=== PATIENT | male | born 1970 | race Caucasian/White ===

== ENCOUNTER 2016-10-17 10:46 | Emergency (ER) | payer OTHER ==
--- NOTE | 2016-10-17 12:32 | ED CLINICAL REPORT ---
Clinical Report - Physicians/Mid Levels [facility] [address] [place] [address] 10/17/2016 10:47 Patient: LAZARO PEDRAZA Time Seen: 10:52 AM. Arrived- By private vehicle. Historian- patient. CPT: ER phys charges level 3 plus (#586117). 7.6-12.5 ch layer clsr-neck, hands (#[id number]). Report L&I (#[id number]). HISTORY OF PRESENT ILLNESS Chief Complaint: Injury to left forearm. The injury happened just prior to arrival. The patient sustained a laceration from a knife. Occurred at work. Patient is experiencing moderate pain. No other injury. REVIEW OF SYSTEMS The patient sustained a laceration. He has had weakness. No swelling, tingling, numbness or suspected foreign body. All systems otherwise negative, except as recorded above. PAST HISTORY See nurses notes. Tetanus immunization status is unknown. Problems: no known problems. Additional Surgeries: no known surgeries. Medications: None. Allergies: None. SOCIAL HISTORY Never smoker. Regular alcohol use; consumes beer daily. No drug use. ADDITIONAL NOTES The nursing notes have been reviewed. PHYSICAL EXAM Vital Signs: 10/17/2016 10:55 BP: 147/77. HR: 98. RR: 20. O2 saturation: 99%. Temp: 98.2 F. Pain level now: 1010. Appearance: Alert. Appears to be in pain. Patient in moderate distress. Head: Head atraumatic. Neck: Normal inspection. CVS: Normal heart rate and rhythm. Respiratory: No respiratory distress. Skin: Skin warm. Extremities: Left forearm: moderate tenderness, mild swelling and deep laceration located in the mid forearm. SEE LACERATION PROCEDURE NOTE. Neurovascular intact distally. (deep into the belly of the flexor carpi ulnaris.). Extremities otherwise negative. Neuro, Vascular and Tendons: Vascular status intact. Sensation intact. Motor intact. Constant weakness (due to muscle injury). No functional tendon deficit or tendon injury seen. Neuro: Oriented X 3. No motor deficit. No sensory deficit. PROGRESS AND PROCEDURES Laceration Repair: Location: left forearm. Length: 12 cm. Wound depth/shape- subcutaneous and linear and involving fascia and muscle. Wound is clean. Distal neuro/vascular/tendon status normal. Tendon examined. No tendon deficit or laceration. Local anesthesia provided using 2% lidocaine with epi. Prepped with Hibiclens. Wound explored, cleansed, irrigated and examined to the base in bloodless field extensively with normal saline. Closure of skin: interrupted 4-0 nylon (11 sutures). Closure of fascia and muscle: interrupted 4-0 (3 sutures). Subcutaneous closure: interrupted 4-0 Vicryl (10 sutures). Post-procedure: he is stable and there are no complications. Bleeding is controlled and neuro-vascular status is intact distal to the wound. Dressing applied. Tetanus immunization given. Estimated blood loss: 10 mL. Course of Care: Tdap Patient is stable. Symptoms better. Discussed case with health care provider (Silvia and there is no further intervention for muscle injury.). Patient/family counseled. Disposition: Discharged. Condition: stable and improved. CLINICAL IMPRESSION Single deep laceration to the left forearm.No foreign body present. INSTRUCTIONS Elevate affected areas above chest level today, for one days until better. Wear fiberglass splint for four weeks until released. Protect wound and keep wound area clean. Change dressing twice daily. Keep wounds dry. You may wash wounds briefly, then dry. Apply neosporin twice daily. Sutures should be removed in fourteen days. Limit use of your hand. Do not work with left hand for four weeks until released. Return to work in four days (No using the left hand. Wear splint.). Do not work for three days. Warnings: TETANUS: You were given a tetanus shot during your visit. Make a note for future reference. GENERAL WARNINGS: Return or contact your physician immediately if your condition worsens or changes unexpectedly, if not improving as expected, or if other problems arise. Prescription Medications: Oxycodone/APAP 5 mg/325 mg: take 1-2 tablets orally every 4 hours as needed for pain. Dispense twenty (20). No refill. Follow-up: Follow up with your doctor in one week. Call for an appointment. Understanding of the discharge instructions verbalized by patient and family. [facility] with: [facility], , [address], , [place], [id number] Follow up in one week. Call for an appointment. Reason for referral: Deep laceration (Electronically signed by Luis Daniel Mc MD 10/17/2016 23:17)
--- NOTE | 2016-10-17 12:32 | ED CLINICAL REPORT ---
Clinical Report - Physicians/Mid Levels [facility] [address] [place] [address] 10/17/2016 10:47 Patient: LAZARO PEDRAZA Time Seen: 10:52 AM. Arrived- By private vehicle. Historian- patient. CPT: ER phys charges level 3 plus (#[id number]). 7.6-12.5 ch layer clsr-neck, hands (#[id number]). Report L&I (#[id number]). HISTORY OF PRESENT ILLNESS Chief Complaint: Injury to left forearm. The injury happened just prior to arrival. The patient sustained a laceration from a knife. Occurred at work. Patient is experiencing moderate pain. No other injury. REVIEW OF SYSTEMS The patient sustained a laceration. He has had weakness. No swelling, tingling, numbness or suspected foreign body. All systems otherwise negative, except as recorded above. PAST HISTORY See nurses notes. Tetanus immunization status is unknown. Problems: no known problems. Additional Surgeries: no known surgeries. Medications: None. Allergies: None. SOCIAL HISTORY Never smoker. Regular alcohol use; consumes beer daily. No drug use. ADDITIONAL NOTES The nursing notes have been reviewed. PHYSICAL EXAM Vital Signs: 10/17/2016 10:55 BP: 147/77. HR: 98. RR: 20. O2 saturation: 99%. Temp: 98.2 F. Pain level now: 1010. Appearance: Alert. Appears to be in pain. Patient in moderate distress. Head: Head atraumatic. Neck: Normal inspection. CVS: Normal heart rate and rhythm. Respiratory: No respiratory distress. Skin: Skin warm. Extremities: Left forearm: moderate tenderness, mild swelling and deep laceration located in the mid forearm. SEE LACERATION PROCEDURE NOTE. Neurovascular intact distally. (deep into the belly of the flexor carpi ulnaris.). Extremities otherwise negative. Neuro, Vascular and Tendons: Vascular status intact. Sensation intact. Motor intact. Constant weakness (due to muscle injury). No functional tendon deficit or tendon injury seen. Neuro: Oriented X 3. No motor deficit. No sensory deficit. PROGRESS AND PROCEDURES Laceration Repair: Location: left forearm. Length: 12 cm. Wound depth/shape- subcutaneous and linear and involving fascia and muscle. Wound is clean. Distal neuro/vascular/tendon status normal. Tendon examined. No tendon deficit or laceration. Local anesthesia provided using 2% lidocaine with epi. Prepped with Hibiclens. Wound explored, cleansed, irrigated and examined to the base in bloodless field extensively with normal saline. Closure of skin: interrupted 4-0 nylon (11 sutures). Closure of fascia and muscle: interrupted 4-0 (3 sutures). Subcutaneous closure: interrupted 4-0 Vicryl (10 sutures). Post-procedure: he is stable and there are no complications. Bleeding is controlled and neuro-vascular status is intact distal to the wound. Dressing applied. Tetanus immunization given. Estimated blood loss: 10 mL. Course of Care: Tdap Patient is stable. Symptoms better. Discussed case with health care provider (Silvia and there is no further intervention for muscle injury.). Patient/family counseled. Disposition: Discharged. Condition: stable and improved. CLINICAL IMPRESSION Single deep laceration to the left forearm.No foreign body present. INSTRUCTIONS Elevate affected areas above chest level today, for one days until better. Wear fiberglass splint for four weeks until released. Protect wound and keep wound area clean. Change dressing twice daily. Keep wounds dry. You may wash wounds briefly, then dry. Apply neosporin twice daily. Sutures should be removed in fourteen days. Limit use of your hand. Do not work with left hand for four weeks until released. Return to work in four days (No using the left hand. Wear splint.). Do not work for three days. Warnings: TETANUS: You were given a tetanus shot during your visit. Make a note for future reference. GENERAL WARNINGS: Return or contact your physician immediately if your condition worsens or changes unexpectedly, if not improving as expected, or if other problems arise. Prescription Medications: Oxycodone/APAP 5 mg/325 mg: take 1-2 tablets orally every 4 hours as needed for pain. Dispense twenty (20). No refill. Follow-up: Follow up with your doctor in one week. Call for an appointment. Understanding of the discharge instructions verbalized by patient and family. [facility]-up with: [facility], , [address], , [place], [address] Follow up in one week. Call for an appointment. Reason for referral: Deep laceration (Electronically signed by Luis Daniel Mc MD 10/17/2016 23:17)
--- NOTE | 2016-10-17 12:33 | ED NURSING NOTES ---
Clinical Report - Nurses [facility] [address] [place] [address] 10/17/2016 10:47 Patient: LAZARO PEDRAZA [facility]#: [id number] TRIAGE Triage time 10:55. Acuity: LEVEL 3. Chief Complaint: LACERATION. 10:55 10/17/16. 10:56 10/17/16. Alert. ( Citizen [place] speaking patient who cut left forearm at work today with a knife. Hardware Developer phone used.). SHARMAINE COMA SCORE: [place] Coma Scale: 15- eyes open spontaneously (4); best verbal response- oriented x 4 (5); best motor response- obeys commands (6). --11:05 Raúl Davila R.N. 10:55 10/17/16. BP: 147/77. HR: 98. RR: 20. O2 saturation: 99% on room air. Temp: 98.2 F (oral). Pain level now: 01/29. --11:05 Raúl Davila R.N. Weight: 90.7 kg stated. Height/Length: 65 inches Per Patient. BMI: 33.3. --10:57 Raúl Davila R.N. Medications None. --10:56 Raúl Davila R.N. Medication/allergy information source: the patient. --11:05 Raúl Davila R.N. Allergies None. --10:56 Raúl Davila R.N. History Arrived by private vehicle. Historian: patient. Primary physician (None). 10:56 10/17/16. Location of injuries: left forearm. This occurred just prior to arrival. Occurred at work. No loss of consciousness. Treatment SOCIAL SCIENCES RESEARCH SCIENTIST: None. See EMS report. PAST MEDICAL HX: Tetanus status: unknown. Immunizations: status is unknown. SOCIAL HX: Never smoker. Alcohol use. (5 beers a day). No drug use. No infectious disease exposure. ABUSE ASSESSMENT: No report of abuse. FALL RISK ASSESSMENT: Fall risk assessment completed. No fall risk identified. NUTRITIONAL RISK ASSESSMENT: The nutritional risk assessment revealed no deficiencies. FUNCTIONAL ASSESSMENT: Functional assessment: no impairments noted. LEARNING NEEDS ASSESSMENT: The learning needs assessment revealed no barriers. SKIN INTEGRITY ASSESSMENT: Skin integrity risk assessment completed. No skin integrity risk identified. --11:05 Raúl Davila R.N. PROBLEMS: no known problems. ADDITIONAL SURGERIES: no known surgeries. Assessment 10:56 10/17/16. --11:05 Raúl Davila R.N. Interventions 10:55 10/17/16. 10:56 10/17/16. ID and allergy band on patient. To treatment room. --11:05 Raúl Davila R.N. PHYSICAL ASSESSMENT 11:00 10/17/16. To room via stretcher. GENERAL / NEURO / PSYCH: Alert. Oriented X 4. CVS: Capillary refill less than 2 seconds. EXTREMITIES: Left forearm: deep laceration with controlled bleeding (bleeding controlled with dressing). --11:03 Raúl Davila R.N. NURSING PROGRESS NOTES 11:03 10/17/16. The plan of care for this patient has been created. Extremity elevated. Neuro-vascular extremity check distal to injury: pulses intact (States he has slight numbness left hand). Reassurance given. Two patient identifiers checked. Call light placed in reach. Side rails up x 2. Bed placed in lowest position. Brakes of bed on. Patient ready for evaluation- chart flagged and notification provided. --11:03 Raúl Davila R.N. 11:08 10/17/2016 TDAP IM 0.5 mL given. (Lot#: [id number], expiration date: 08/30/2018, Technology Training Associate: sanofi pasteur). Given in the right deltoid. Allergies verified and confirmed 5 rights. Vaccine information statement provided to the patient (Citizen [place]). --11:09 Raúl Davila R.N. WOUND REPAIR: Preparation: suture tray set-up. --11:17 Bernie Clark ER Tech1 11:59 10/17/2016 Lidocaine-Epinephrine (Lidocaine-Epinephrine) Injection 2 % given. Allergies verified and confirmed 5 rights. --11:59 Raúl Davila R.N. Bleeding controlled. Wound cleansed with sterile saline. Applied bulky dressing consisting of 4x4 gauze, following the application of antibiotic ointment (held with coban). --12:14 Bernie Clark ER Tech1 late entry -. ( 2 suture pks. used.). --12:15 Bernie Clark ER Tech1 12:41 10/17/2016 Oxycodone-APAP (Oxycodone-Acetaminophen) PO 10/650 mg Tablets 2 tab given. Allergies verified, confirmed 5 rights and sedative warning given. --12:41 Raúl Davila R.N. Volar fiberglass upper extremity splint applied to left forearm, wrist and hand by tech. Distal pulses intact, sensation intact and motor within normal limits. Sling applied to left arm by emergency medical technician/driver. --12:49 Bernie Clark ER Tech1. DISPOSITION / DISCHARGE 12:56 10/17/16. Condition at departure: improved. The goals identified in the patient's plan of care were met. No learning barriers present. Discharge instructions provided and reviewed with the patient, spouse and family. Reviewed warnings. Reviewed medication(s). Treatments reviewed. Work note given. Patient, spouse and family verbalized understanding. Written instructions provided in Spanish and Citizen [place]. ( Pt understands DC instructions as family translated). The patient was discharged by the physician. He was discharged home and accompanied by family. He left the Emergency Department ambulatory and via private vehicle. Family member driving. FALL RISK ASSESSMENT: Fall risk assessment completed. No fall risk identified. --12:56 Raúl Davila R.N. 12:54 10/17/16. BP: 132/78. HR: 83. RR: 16. O2 saturation: 99% on room air. Temp: 98 F (oral). --12:56 Raúl Davila R.N. 12:56 10/17/16. Departure time: 12:Oct 17 2016. --12:56 Raúl Davila R.N. Locked/Released at 10/17/2016 14:02 by Raúl Davila R.N.
--- NOTE | 2016-10-17 12:33 | ED ORDER SUMMARY ---
..... Patient: LAZARO PEDRAZA OrderSheet [facility] VisitID: [id number] [address] [place] [address] 46y, M Registration Date/Time: 10/17/2016 ORDER SHEET Weight: 90.7 kg (stated) Allergies: None GENERAL ORDERS: Splint (UE) (Left) (Volar) (Short Arm) (12:32 10/17/2016 Kristi BISHOP) (12:35 LNations ER Tech1) MEDICATION ORDERS: Lidocaine-Epinephrine Injection 2 % (soln) (place at bedside) (11:07 10/17/2016 JBoliver R.N. verbal order read back to Kristi BISHOP) (Ack 11:09 JBoardley R.N.) (11:59 JBoardley R.N.) Tdap IM 0.5 mL (NOW, per protocol) (11:08 10/17/2016 Dawn R.N. verbal order read back to Kristi BISHOP) (11:08 JBoardley R.N.) Oxycodone-APAP PO 10/650 mg (NOW) (12:33 10/17/2016 Kristi BISHOP) (Ack 12:39 JBoardley R.N.) (12:41 JBoardley R.N.) IV FLUIDS: ORDER SHEET NOTES: [Electronically signed by Raúl Davila R.N. (14:02 10/17/2016)] [Electronically signed by Luis Daniel Mc MD (23:17 10/17/2016)] [Electronically locked/signed by Raúl Davila R.N. (14:02 10/17/2016)]
--- NOTE | 2016-10-17 12:33 | ED NURSING NOTES ---
Clinical Report - Nurses [facility] [address] [place] [address] 10/17/2016 10:47 [id number] Triage time 10:55. Acuity: LEVEL 3. Chief Complaint: LACERATION. 10:55 10/17/16. 10:56 10/17/16. Alert. ( Micronesian speaking patient who cut left forearm at work today with a knife. Insights Analyst phone used.). SHARMAINE COMA SCORE: [place] Coma Scale: 15- eyes open spontaneously (4); best verbal response- oriented x 4 (5); best motor response- obeys commands (6). --11:05 Raúl Davila R.N. 10:55 10/17/16. BP: 147/77. HR: 98. RR: 20. O2 saturation: 99% on room air. Temp: 98.2 F (oral). Pain level now: 01/29. --11:05 Raúl Davila R.N. Weight: 90.7 kg stated. Height/Length: 65 inches Per Patient. BMI: 33.3. --10:57 Raúl Davila R.N. Medications None. --10:56 Raúl Davila R.N. Medication/allergy information source: the patient. --11:05 Raúl Davila R.N. Allergies None. --10:56 Raúl Davila R.N. History Arrived by private vehicle. Historian: patient. Primary physician (None). 10:56 10/17/16. Location of injuries: left forearm. This occurred just prior to arrival. Occurred at work. No loss of consciousness. Treatment PHOTONICS ENGINEERING TECHNOLOGIST: None. See EMS report. PAST MEDICAL HX: Tetanus status: unknown. Immunizations: status is unknown. SOCIAL HX: Never smoker. Alcohol use. (5 beers a day). No drug use. No infectious disease exposure. ABUSE ASSESSMENT: No report of abuse. FALL RISK ASSESSMENT: Fall risk assessment completed. No fall risk identified. NUTRITIONAL RISK ASSESSMENT: The nutritional risk assessment revealed no deficiencies. FUNCTIONAL ASSESSMENT: Functional assessment: no impairments noted. LEARNING NEEDS ASSESSMENT: The learning needs assessment revealed no barriers. SKIN INTEGRITY ASSESSMENT: Skin integrity risk assessment completed. No skin integrity risk identified. --11:05 Raúl Davila R.N. PROBLEMS: no known problems. ADDITIONAL SURGERIES: no known surgeries. Assessment 10:56 10/17/16. --11:05 Raúl Davila R.N. Interventions 10:55 10/17/16. 10:56 10/17/16. ID and allergy band on patient. To treatment room. --11:05 Raúl Davila R.N. PHYSICAL ASSESSMENT 11:00 10/17/16. To room via stretcher. GENERAL / NEURO / PSYCH: Alert. Oriented X 4. CVS: Capillary refill less than 2 seconds. EXTREMITIES: Left forearm: deep laceration with controlled bleeding (bleeding controlled with dressing). --11:03 Raúl Davila R.N. NURSING PROGRESS NOTES 11:03 10/17/16. The plan of care for this patient has been created. Extremity elevated. Neuro-vascular extremity check distal to injury: pulses intact (States he has slight numbness left hand). Reassurance given. Two patient identifiers checked. Call light placed in reach. Side rails up x 2. Bed placed in lowest position. Brakes of bed on. Patient ready for evaluation- chart flagged and notification provided. --11:03 Raúl Davila R.N. 11:08 10/17/2016 TDAP IM 0.5 mL given. (Lot#: [id number], expiration date: 08/30/2018, Pharmacy Grad Intern: sanofi pasteur). Given in the right deltoid. Allergies verified and confirmed 5 rights. Vaccine information statement provided to the patient (Micronesian). --11:09 Raúl Davila R.N. WOUND REPAIR: Preparation: suture tray set-up. --11:17 Bernie Clark ER Tech1 11:59 10/17/2016 Lidocaine-Epinephrine (Lidocaine-Epinephrine) Injection 2 % given. Allergies verified and confirmed 5 rights. --11:59 Raúl Davila R.N. Bleeding controlled. Wound cleansed with sterile saline. Applied bulky dressing consisting of 4x4 gauze, following the application of antibiotic ointment (held with coban). --12:14 Bernie Clark ER Tech1 late entry -. ( 2 suture pks. used.). --12:15 Bernie Clark ER Tech1 12:41 10/17/2016 Oxycodone-APAP (Oxycodone-Acetaminophen) PO 10/650 mg Tablets 2 tab given. Allergies verified, confirmed 5 rights and sedative warning given. --12:41 Raúl Davila R.N. Volar fiberglass upper extremity splint applied to left forearm, wrist and hand by tech. Distal pulses intact, sensation intact and motor within normal limits. Sling applied to left arm by hyperbaric technician. --12:49 Bernie Clark ER Tech1. DISPOSITION / DISCHARGE 12:56 10/17/16. Condition at departure: improved. The goals identified in the patient's plan of care were met. No learning barriers present. Discharge instructions provided and reviewed with the patient, spouse and family. Reviewed warnings. Reviewed medication(s). Treatments reviewed. Work note given. Patient, spouse and family verbalized understanding. Written instructions provided in Bulgarian and Micronesian. ( Pt understands DC instructions as family translated). The patient was discharged by the physician. He was discharged home and accompanied by family. He left the Emergency Department ambulatory and via private vehicle. Family member driving. FALL RISK ASSESSMENT: Fall risk assessment completed. No fall risk identified. --12:56 Raúl Davila R.N. 12:54 10/17/16. BP: 132/78. HR: 83. RR: 16. O2 saturation: 99% on room air. Temp: 98 F (oral). --12:56 Raúl Davila R.N. 12:56 10/17/16. Departure time: 12:Oct 17 2016. --12:56 Raúl Davila R.N. Locked/Released at 10/17/2016 14:02 by Raúl Davila R.N.
--- NOTE | 2016-10-17 12:33 | ED ORDER SUMMARY ---
..... Patient: LAZARO PEDRAZA OrderSheet [facility] VisitID: [id number] [address] [place] [address] 46y, M Registration Date/Time: 10/17/2016 ORDER SHEET Weight: 90.7 kg (stated) Allergies: None GENERAL ORDERS: Splint (UE) (Left) (Volar) (Short Arm) (12:32 10/17/2016 Kristi BISHOP) (12:35 LNations ER Tech1) MEDICATION ORDERS: Lidocaine-Epinephrine Injection 2 % (soln) (place at bedside) (11:07 10/17/2016 JBoliver R.N. verbal order read back to Kristi BISHOP) (Ack 11:09 JBoardley R.N.) (11:59 JBoardley R.N.) Tdap IM 0.5 mL (NOW, per protocol) (11:08 10/17/2016 Dawn R.N. verbal order read back to Kristi BISHOP) (11:08 JBoardley R.N.) Oxycodone-APAP PO 10/650 mg (NOW) (12:33 10/17/2016 Kristi BISHOP) (Ack 12:39 JBoardley R.N.) (12:41 JBoardley R.N.) IV FLUIDS: ORDER SHEET NOTES: [Electronically signed by Raúl Davila R.N. (14:02 10/17/2016)] [Electronically signed by Luis Daniel Mc MD (23:17 10/17/2016)] [Electronically locked/signed by Raúl Davila R.N. (14:02 10/17/2016)]
--- NOTE | 2016-10-17 23:17 | ED DISCHARGE INSTRUCTIONS ---
Patient: LAZARO PEDRAZA General Instructions [facility] VisitID: [id number] [address], [place] [address] 46y, M Registration Date/Time: 10/17/2016 Single deep laceration to the left forearm.No foreign body present. INSTRUCTIONS Elevate affected areas above chest level today, for one days until better. Wear fiberglass splint for four weeks until released. Protect wound and keep wound area clean. Change dressing twice daily. Keep wounds dry. You may wash wounds briefly, then dry. Apply neosporin twice daily. Sutures should be removed in fourteen days. Limit use of your hand. Do not work with left hand for four weeks until released. Return to work in four days (No using the left hand. Wear splint.). Do not work for three days. Warnings: TETANUS: You were given a tetanus shot during your visit. Make a note for future reference. GENERAL WARNINGS: Return or contact your physician immediately if your condition worsens or changes unexpectedly, if not improving as expected, or if other problems arise. Prescription Medications: Oxycodone/APAP 5 mg/325 mg: take 1-2 tablets orally every 4 hours as needed for pain. Dispense twenty (20). No refill. Follow-up: Follow up with your doctor in one week. Call for an appointment. Understanding of the discharge instructions verbalized by patient and family. Follow-up with: [facility], , [address], [place] [address] Follow up in one week. Call for an appointment. Reason for referral: Deep laceration ADDITIONAL INFORMATION Laceration (All Closures) Alaceration is a cut through the skin. This will usually require stitches (sutures) or tony if it is deep. Minor cuts may be treated with a surgical tape closure orskin glue. Home care The following guidelines will help you care for your laceration at home: Extremity, face, or trunk wounds Keep the wound clean and dry. If a bandage was applied and it becomes wet or dirty, replace it. Otherwise, leave it in place for the first 24 hours. If stitches or tony were used, clean the wound daily. After removing the bandage, wash the area with soap and water. Use a wet cotton swab to loosen and remove any blood or crust that forms. The doctor may prescribe an antibiotic cream or ointment to prevent infection. Do not stop taking this medication until you have finished the prescribed course or the doctor tells you to stop. The doctor may also prescribe medications for pain. Follow the doctors instructions for taking these medications. You may remove the bandage to shower as usual after the first 24 hours, but do not soak the area in water (no swimming) until the stitches or tony are removed. If surgical tape was used, keep the area clean and dry. If it becomes wet, blot it dry with a towel. If skin glue was used, do not scratch, rub, or pick at the adhesive film. Do not place tape directly over the film. Do not apply liquid, ointment, or creams to the wound while the film is in place. Do not clean the wound with peroxide and do not apply ointments. Avoid activities that cause heavy sweating until the film has fallen off. Protect the wound from prolonged exposure to sunlight or tanning lamps. You may shower as usual but do not soak the wound in water (no baths or swimming). The film will fall off by itself in 510 days. Scalp wounds During the first two days, you may carefully rinse your hair in the shower to remove blood, glass or dirt particles. After two days, you may shower and shampoo your hair normally. Do not soak your scalp in the tub or go swimming until the stitches or tony have been removed. Talk with your doctor before applying any antibiotic ointment to the wound. Mouth wounds Eat soft foods to reduce pain. If the cut is inside of your mouth, clean by rinsing after each meal and at bedtime with a mixture of equal parts water and hydrogen peroxide (do not swallow!). Or, you can use a cotton swab to directly apply hydrogen peroxide onto the cut. Mouth wounds can be painful when eating. You may use an [id number] local numbing solution for pain relief. If this is not available, you may use any numbing solution for teething babies. You may apply this directly to the sores with a cotton-tip swab or with your finger. Follow-up care Follow up with your health care provider. Most skin wounds heal within ten days. Mouth and facial wounds heal within five days. However, even with proper treatment, a wound infection may sometimes occur. Therefore, you should check the wound daily for signs of infection listed below. Stitches should be removed from the face within five days; stitches and tony should be removed from other parts of the body within 714 days. If dissolving stitches were used in the mouth, these will fall out or dissolve without the need for removal. If tape closures were used, remove them yourself if they have not fallen off after 7 days. Ifskin glue was used, the film will fall off by itself in 510 days. When to seek medical care Get prompt medical attention if any of these occur: Bleeding not controlled by direct pressure Signs of infection, including increasing pain in the wound, increasing wound redness or swelling, or pus coming from the wound Fever of 100.4F (38C) or higher, or as directed by your health care provider Stitches or tony come apart or fall out or surgical tape falls off before 7 days Wound edges re-open Laceration, Extremity (Sutures, Tony, Or Tape) A laceration is a cut through the skin. This will usually require stitches (sutures) or tony if it is deep. Minor cuts may be treated with surgical tape closures. Home care The following guidelines will help you care for your laceration at home: Keep the wound clean and dry. If a bandage was applied and it becomes wet or dirty, replace it. Otherwise, leave it in place for the first 24 hours, then change it once a day or as directed. If stitches or tony were used, clean the wound daily: After removing the bandage, wash the area with soap and water. Use a wet cotton swab to loosen and remove any blood or crust that forms. After cleaning, keep the wound clean and dry. Talk with your doctor before applying any antibiotic ointment to the wound. Reapply the bandage. You may remove the bandage to shower as usual after the first 24 hours, but do not soak the area in water (no swimming) until the stitches or tony are removed. If surgical tape closures were used, keep the area clean and dry. If it becomes wet, blot it dry with a towel. The doctor may prescribe an antibiotic cream or ointment to prevent infection. Do not stop taking this medication until you have finished the prescribed course or the doctor tells you to stop. The doctor may also prescribe medications for pain. Follow the doctors instructions for taking these medications. If you have chronic liver or kidney disease or ever had a stomach ulcer or GI bleeding, talk with your doctor before using these medicines. Follow-up care Follow up with your health care provider. Most skin wounds heal within ten days. However, an infection may sometimes occur despite proper treatment. Therefore, check the wound daily for the signs of infection listed below. Stitches and tony should be removed within 714 days. If surgical tape closures were used, you may remove them after 10 days, if they have not fallen off by then. Notify your doctor if you notice persistent numbness or weakness in the injured extremity. (Note:A radiologist will review any X-rays that were taken. We will notify you of any new findings that may affect your care.) When to seek medical care Get prompt medical attention if any of these occur: Increasing pain in the wound Redness, swelling, or pus coming from the wound Fever of 100.4F (38C) or higher, or as directed by your health care provider If stitches or tony come apart or fall out before your next appointment If the surgical tape closures fall off within seven days, or the wound edges re-open Bleeding not controlled by direct pressure Bandage Change If the bandage becomes wet or dirty, replace it. Otherwise, leave it in place for the first 24 hours. Then once a day: After removing the bandage, wash the area with soap and water. Use a wet cotton swab to loosen and remove any blood or crust that forms on the wound. After cleaning, apply a thin layer of antibiotic ointment or cream. Reapply the bandage. You may shower as usual after the first 24 hours. If the bandage is on an arm or leg, cover it with a plastic bag rubber banded at both ends before showering. No tub baths or swimming until the bandage is removed and the wound healed (at least 7 days). Laceration (All Closures) Alaceration is a cut through the skin. This will usually require stitches (sutures) or tony if it is deep. Minor cuts may be treated with a surgical tape closure orskin glue. Home care The following guidelines will help you care for your laceration at home: Extremity, face, or trunk wounds Keep the wound clean and dry. If a bandage was applied and it becomes wet or dirty, replace it. Otherwise, leave it in place for the first 24 hours. If stitches or tony were used, clean the wound daily. After removing the bandage, wash the area with soap and water. Use a wet cotton swab to loosen and remove any blood or crust that forms. The doctor may prescribe an antibiotic cream or ointment to prevent infection. Do not stop taking this medication until you have finished the prescribed course or the doctor tells you to stop. The doctor may also prescribe medications for pain. Follow the doctors instructions for taking these medications. You may remove the bandage to shower as usual after the first 24 hours, but do not soak the area in water (no swimming) until the stitches or tony are removed. If surgical tape was used, keep the area clean and dry. If it becomes wet, blot it dry with a towel. If skin glue was used, do not scratch, rub, or pick at the adhesive film. Do not place tape directly over the film. Do not apply liquid, ointment, or creams to the wound while the film is in place. Do not clean the wound with peroxide and do not apply ointments. Avoid activities that cause heavy sweating until the film has fallen off. Protect the wound from prolonged exposure to sunlight or tanning lamps. You may shower as usual but do not soak the wound in water (no baths or swimming). The film will fall off by itself in 510 days. Scalp wounds During the first two days, you may carefully rinse your hair in the shower to remove blood, glass or dirt particles. After two days, you may shower and shampoo your hair normally. Do not soak your scalp in the tub or go swimming until the stitches or tony have been removed. Talk with your doctor before applying any antibiotic ointment to the wound. Mouth wounds Eat soft foods to reduce pain. If the cut is inside of your mouth, clean by rinsing after each meal and at bedtime with a mixture of equal parts water and hydrogen peroxide (do not swallow!). Or, you can use a cotton swab to directly apply hydrogen peroxide onto the cut. Mouth wounds can be painful when eating. You may use an [id number] local numbing solution for pain relief. If this is not available, you may use any numbing solution for teething babies. You may apply this directly to the sores with a cotton-tip swab or with your finger. Follow-up care Follow up with your health care provider. Most skin wounds heal within ten days. Mouth and facial wounds heal within five days. However, even with proper treatment, a wound infection may sometimes occur. Therefore, you should check the wound daily for signs of infection listed below. Stitches should be removed from the face within five days; stitches and tony should be removed from other parts of the body within 714 days. If dissolving stitches were used in the mouth, these will fall out or dissolve without the need for removal. If tape closures were used, remove them yourself if they have not fallen off after 7 days. Ifskin glue was used, the film will fall off by itself in 510 days. When to seek medical care Get prompt medical attention if any of these occur: Bleeding not controlled by direct pressure Signs of infection, including increasing pain in the wound, increasing wound redness or swelling, or pus coming from the wound Fever of 100.4F (38C) or higher, or as directed by your health care provider Stitches or tony come apart or fall out or surgical tape falls off before 7 days Wound edges re-open Laceration, Extremity (Sutures, Tony, Or Tape) A laceration is a cut through the skin. This will usually require stitches (sutures) or tony if it is deep. Minor cuts may be treated with surgical tape closures. Home care The following guidelines will help you care for your laceration at home: Keep the wound clean and dry. If a bandage was applied and it becomes wet or dirty, replace it. Otherwise, leave it in place for the first 24 hours, then change it once a day or as directed. If stitches or tony were used, clean the wound daily: After removing the bandage, wash the area with soap and water. Use a wet cotton swab to loosen and remove any blood or crust that forms. After cleaning, keep the wound clean and dry. Talk with your doctor before applying any antibiotic ointment to the wound. Reapply the bandage. You may remove the bandage to shower as usual after the first 24 hours, but do not soak the area in water (no swimming) until the stitches or tony are removed. If surgical tape closures were used, keep the area clean and dry. If it becomes wet, blot it dry with a towel. The doctor may prescribe an antibiotic cream or ointment to prevent infection. Do not stop taking this medication until you have finished the prescribed course or the doctor tells you to stop. The doctor may also prescribe medications for pain. Follow the doctors instructions for taking these medications. If you have chronic liver or kidney disease or ever had a stomach ulcer or GI bleeding, talk with your doctor before using these medicines. Follow-up care Follow up with your health care provider. Most skin wounds heal within ten days. However, an infection may sometimes occur despite proper treatment. Therefore, check the wound daily for the signs of infection listed below. Stitches and tony should be removed within 714 days. If surgical tape closures were used, you may remove them after 10 days, if they have not fallen off by then. Notify your doctor if you notice persistent numbness or weakness in the injured extremity. (Note:A radiologist will review any X-rays that were taken. We will notify you of any new findings that may affect your care.) When to seek medical care Get prompt medical attention if any of these occur: Increasing pain in the wound Redness, swelling, or pus coming from the wound Fever of 100.4F (38C) or higher, or as directed by your health care provider If stitches or tony come apart or fall out before your next appointment If the surgical tape closures fall off within seven days, or the wound edges re-open Bleeding not controlled by direct pressure Oxycodone Hydrochloride, Acetaminophen Oral tablet What is this medicine? ACETAMINOPHEN; OXYCODONE (a set a MEHDI isael fen; ox i KOE done) is a pain reliever. It is used to treat mild to moderate pain. How should I use this medicine? Take this medicine by mouth with a full glass of water. Follow the directions on the prescription label. Take your medicine at regular intervals. Do not take your medicine more often than directed. Talk to your bow maker gift wrapping regarding the use of this medicine in children. Special care may be needed. Patients over 65 years old may have a stronger reaction and need a smaller dose. What side effects may I notice from receiving this medicine? Side effects that you should report to your doctor or health home care provider as soon as possible: allergic reactions like skin rash, itching or hives, swelling of the face, lips, or tongue breathing difficulties, wheezing confusion light headedness or fainting spells severe stomach pain yellowing of the skin or the whites of the eyes Side effects that usually do not require medical attention (report to your doctor or health home care provider if they continue or are bothersome): dizziness drowsiness nausea vomiting What may interact with this medicine? alcohol antihistamines barbiturates like amobarbital, butalbital, butabarbital, methohexital, pentobarbital, phenobarbital, thiopental, and secobarbital benztropine drugs for bladder problems like solifenacin, trospium, oxybutynin, tolterodine, hyoscyamine, and methscopolamine drugs for breathing problems like ipratropium and tiotropium drugs for certain stomach or intestine problems like propantheline, homatropine methylbromide, glycopyrrolate, atropine, belladonna, and dicyclomine general anesthetics like etomidate, ketamine, nitrous oxide, propofol, desflurane, enflurane, halothane, isoflurane, and sevoflurane medicines for depression, anxiety, or psychotic disturbances medicines for sleep muscle relaxants naltrexone narcotic medicines (opiates) for pain phenothiazines like perphenazine, thioridazine, chlorpromazine, mesoridazine, fluphenazine, prochlorperazine, promazine, and trifluoperazine scopolamine tramadol trihexyphenidyl What if I miss a dose? If you miss a dose, take it as soon as you can. If it is almost time for your next dose, take only that dose. Do not take double or extra doses. Where should I keep my medicine? Keep out of the reach of children. This medicine can be abused. Keep your medicine in a safe place to protect it from theft. Do not share this medicine with anyone. Selling or giving away this medicine is dangerous and against the law. Store at room temperature between 20 and 25 degrees C (68 and 77 degrees F). Keep container tightly closed. Protect from light. This medicine may cause accidental overdose and if it is taken by other adults, children, or pets. Flush any unused medicine down the toilet to reduce the chance of harm. Do not use the medicine after the expiration date. What should I tell my health care provider before I take this medicine? They need to know if you have any of these conditions: brain tumor Crohn's disease, inflammatory bowel disease, or ulcerative colitis drink more than 3 alcohol containing drinks per day drug abuse or addiction head injury heart or circulation problems kidney disease or problems going to the bathroom liver disease lung disease, asthma, or breathing problems an unusual or allergic reaction to acetaminophen, oxycodone, other opioid analgesics, other medicines, foods, dyes, or preservatives or trying to get breast-feeding What should I watch for while using this medicine? Tell your doctor or health home care provider if your pain does not go away, if it gets worse, or if you have new or a different type of pain. You may develop tolerance to the medicine. Tolerance means that you will need a higher dose of the medication for pain relief. Tolerance is normal and is expected if you take this medicine for a long time. Do not suddenly stop taking your medicine because you may develop a severe reaction. Your body becomes used to the medicine. This does NOT mean you are addicted. Addiction is a behavior related to getting and using a drug for a non-medical reason. If you have pain, you have a medical reason to take pain medicine. Your doctor will tell you how much medicine to take. If your doctor wants you to stop the medicine, the dose will be slowly lowered over time to avoid any side effects. You may get drowsy or dizzy. Do not drive, use machinery, or do anything that needs mental alertness until you know how this medicine affects you. Do not stand or sit up quickly, especially if you are an older patient. This reduces the risk of dizzy or fainting spells. Alcohol may interfere with the effect of this medicine. Avoid alcoholic drinks. There are different types of narcotic medicines (opiates) for pain. If you take more than one type at the same time, you may have more side effects. Give your health care provider a list of all medicines you use. Your doctor will tell you how much medicine to take. Do not take more medicine than directed. Call emergency for help if you have problems breathing. The medicine will cause constipation. Try to have a bowel movement at least every 2 to 3 days. If you do not have a bowel movement for 3 days, call your doctor or health home care provider. Do not take Tylenol (acetaminophen) or medicines that have acetaminophen with this medicine. Too much acetaminophen can be very dangerous. Many nonprescription medicines contain acetaminophen. Always read the labels carefully to avoid taking more acetaminophen. You have been given the following additional information: Laceration, All Laceration, Extrem (Suture, Staple, Or Tape) Dressing Change Laceration, All Laceration, Extrem (Suture, Staple, Or Tape) Oxycodone Hydrochloride, Acetaminophen Oral tablet Limit use of your hand. Do not work with left hand for four weeks until released. Return to work in four days (No using the left hand. Wear splint.). Do not work for three days. (Electronically signed by Luis Daniel Mc MD 10/17/2016 23:17)
--- NOTE | 2016-10-17 23:17 | ED MED RECONCILIATION SUMMARY ---
Patient: MURTAZA CALLLAZARO MG Medication Reconciliation Report [facility] VisitID: [id number] [address] [place] [address] 46y, M Registration Date/Time: 10/17/2016 Weight: 90.7 kg Height/Length: 65 in. BMI: 33.3 ALLERGIES: None The patient's Home Medications are listed below: NONE. The source(s) of the original Home Medication information: patient The following Medications were given to the patient in the Emergency Department: TDAP [IM] IM 0.5 mL, administered: 10/17/2016 11:08:00 AM Lidocaine-Epinephrine [Injection] Injection 2 %, administered: 10/17/2016 11:59:00 AM Oxycodone-APAP [PO] PO 2 tab, administered: 10/17/2016 12:41:00 PM The following Medications were prescribed to the patient: Oxycodone/APAP 5 mg/325 mg: take 1-2 tablets orally every 4 hours as needed for pain. Dispense twenty (20). No refill. -- Luis Daniel Mc MD
--- NOTE | 2016-10-17 23:17 | ED MAR SUMMARY ---
..... Medication Administration Record [address] [place] [address] Patient: LAZARO PEDRAZA Visit ID: [id number] 46y, M Weight: 90.7 kg Height/Length: 65 in BMI: 33.3 ALLERGIES: None Given 11:08 10/17/2016 Raúl Davila R.N. Medication Administered: TDAP [IM], Dose: 0.5 mL IM. Medication Ordered: Tdap IM 0.5 mL (NOW, per protocol). Given 11:59 10/17/2016 Raúl Davila R.N. Medication Administered: LIDOCAINE-EPINEPHRINE [INJECTION] (LIDOCAINE-EPINEPHRINE), Dose: 2 % Injection. Medication Ordered: Lidocaine-Epinephrine Injection 2 % (soln) (place at bedside). Given 12:41 10/17/2016 Raúl Davila R.N. Medication Administered: OXYCODONE-APAP [PO] (OXYCODONE-ACETAMINOPHEN), Dose: 2 tab 10/650 mg Tablets PO. Medication Ordered: Oxycodone-APAP PO 10/650 mg (NOW).
--- NOTE | 2016-10-17 23:17 | ED MED RECONCILIATION SUMMARY ---
Patient: MURTAZA CALLLAZARO MG Medication Reconciliation Report [facility] VisitID: [id number] [address] [place] [address] 46y, M Registration Date/Time: 10/17/2016 Weight: 90.7 kg Height/Length: 65 in. BMI: 33.3 ALLERGIES: None The patient's Home Medications are listed below: NONE. The source(s) of the original Home Medication information: patient The following Medications were given to the patient in the Emergency Department: TDAP [IM] IM 0.5 mL, administered: 10/17/2016 11:08:00 AM Lidocaine-Epinephrine [Injection] Injection 2 %, administered: 10/17/2016 11:59:00 AM Oxycodone-APAP [PO] PO 2 tab, administered: 10/17/2016 12:41:00 PM The following Medications were prescribed to the patient: Oxycodone/APAP 5 mg/325 mg: take 1-2 tablets orally every 4 hours as needed for pain. Dispense twenty (20). No refill. -- Luis Daniel Mc MD
--- NOTE | 2016-10-17 23:17 | ED MAR SUMMARY ---
..... Medication Administration Record [address] [place] [address] Patient: LAZARO PEDRAZA Visit ID: [id number] 46y, M Weight: 90.7 kg Height/Length: 65 in BMI: 33.3 ALLERGIES: None Given 11:08 10/17/2016 Raúl Davila R.N. Medication Administered: TDAP [IM], Dose: 0.5 mL IM. Medication Ordered: Tdap IM 0.5 mL (NOW, per protocol). Given 11:59 10/17/2016 Raúl Davila R.N. Medication Administered: LIDOCAINE-EPINEPHRINE [INJECTION] (LIDOCAINE-EPINEPHRINE), Dose: 2 % Injection. Medication Ordered: Lidocaine-Epinephrine Injection 2 % (soln) (place at bedside). Given 12:41 10/17/2016 Raúl Davila R.N. Medication Administered: OXYCODONE-APAP [PO] (OXYCODONE-ACETAMINOPHEN), Dose: 2 tab 10/650 mg Tablets PO. Medication Ordered: Oxycodone-APAP PO 10/650 mg (NOW).
== END 2016-10-17 12:56 | disposition home or self-care (01) ==
LOC: ED SRH 10:46 → EDSEX 10:47 → ED SRH 12:56
DX: S51.812A Laceration without foreign body of left forearm, initial encounter (principal); W26.0XXA Contact with knife, initial encounter; Y93.89 Activity, other specified; Y99.8 Other external cause status; Y99.0 Civilian activity done for income or pay; Z23 Encounter for immunization

== ENCOUNTER 2016-10-31 15:12 | Emergency (ER) | payer OTHER ==
--- NOTE | 2016-10-31 15:31 | ED NURSING NOTES ---
Clinical Report - [facility]es [facility] [place] [address] 10/31/2016 15:13 [id number] Triage time 15:21. Acuity: LEVEL 5. Chief Complaint: SUTURE REMOVAL. Alert. No acute distress. SEPSIS SCREEN: Sepsis Screen. Negative (no infection suspected/documented). NIDA COMA SCORE: Nida Coma Scale: 15- eyes open spontaneously (4); best verbal response- oriented x 4 (5); best motor response- obeys commands (6). --15:29 Pascual Burrows R.N. 15:20 10/31/16. BP: 127/78. HR: 64. RR: 16. O2 saturation: 99%. Temp: 98.7 F. --15:29 Pascual Burrows R.N. 15:20 10/31/16. Pain level now 05/01. --15:48 Pascual Burrows R.N. Weight: 90.7 kg stated. Height/Length: 65 inches Per Patient. BMI: 33.3. --15:27 Pascual Burorws R.N. Medications None. --15:27 Pascual Burrows R.N. Allergies None. --15:27 Pascual Burrows R.N. History Arrived by private vehicle. Historian: son and family. Accompanied by family. Location: left forearm. He has experienced pain since last seen that is generalized in location and located in the left forearm that is mild in severity. Previous treatment: Previously seen days ago (14 days ago). PAST MEDICAL HX: Tetanus status: up-to-date. SOCIAL HX: Never smoker. No alcohol use or drug use. No infectious disease exposure. SELF HARM ASSESSMENT: A self harm assessment was performed. The patient answered "no" to the question "Have you recently felt down, depressed, or hopeless?", "Do you have thoughts of harming or killing yourself?" and "Have you recently had thoughts about harming or killing others?". FALL RISK ASSESSMENT: Fall risk assessment completed. No fall risk identified. NUTRITIONAL RISK ASSESSMENT: The nutritional risk assessment revealed no deficiencies. FUNCTIONAL ASSESSMENT: Functional assessment: no impairments noted. LEARNING NEEDS ASSESSMENT: The learning needs assessment revealed no barriers. ABUSE ASSESSMENT: Abuse assessment: The patient was asked "Do you feel safe in your home?". SKIN INTEGRITY ASSESSMENT: Skin integrity risk assessment completed. No skin integrity risk identified. --15:29 Pascual Burrows R.N. PROBLEMS: Laceration. --15:27 Pascual Burrows R.N. ADDITIONAL SURGERIES: no known surgeries. Interventions ID band on patient. To treatment room. --15:29 Pascual Burrows R.N. PHYSICAL ASSESSMENT Ambulatory to room. GENERAL / NEURO / PSYCH: Alert. Oriented X 4. Appears in no acute distress. EXTREMITIES: Capillary refill is less than 2 seconds in the extremities. Sensation intact in extremities. ROM of extremities within normal limits. SKIN: Skin is warm and dry. Healing wound. No signs or symptoms of infection. Sutures intact. --15:29 Pascual Burrows R.N. NURSING PROGRESS NOTES The plan of care for this patient has been created. Two patient identifiers checked. Call light placed in reach. Bed placed in lowest position. Brakes of bed on. --15:29 Pascual Burrows R.N. Sutures to left forearm removed by nurse; wound edges well approximated, minimal tenderness present. No redness or drainage present. --15:38 Pascual Burrows R.N. Sutures removed; (x11 sutures removed). --15:41 Pascual Burrows R.N. DISPOSITION / DISCHARGE Departure time: 1545. Condition at departure: improved and stable. The goals identified in the patient's plan of care were met. No learning barriers present. Discharge instructions provided and reviewed with the patient and family. Reviewed medication(s) side effects, precautions, dosing and course information. Prescription(s) given to the patient. Reviewed referral to a primary care physician for followup. The patient was discharged by the nurse practitioner. He was discharged home and accompanied by family. He left the Emergency Department ambulatory and via private vehicle. Family member driving. --15:47 Pascual Burrows R.N. 15:20 10/31/16. BP: 127/78. HR: 64. RR: 16. O2 saturation: 99%. Temp: 98.7 F. --15:47 Pascual Burrows R.N. 15:48 10/31/16. Pain level now 05/01. --15:48 Pascual Burrows R.N. Locked/Released at 10/31/2016 15:54 by Pascual Burrows R.N.
--- NOTE | 2016-10-31 15:31 | ED CLINICAL REPORT ---
Clinical Report - Physicians/Mid Levels [facility] [address] [place] [address] 10/31/2016 15:13 Patient: LAZARO PEDRAZA Time Seen: 15:18; initial patient contact, initial documentation, patient care assumed. Arrived- By private vehicle. Historian- patient and son. HISTORY OF PRESENT ILLNESS Treated in emergency department (about 14 days ago). Chief Complaint: SUTURE REMOVAL. The patient has experienced pain since the procedure was performed. Previous emergency department treatment: prescription given for pain med. Patient finished medication (oxycodone). REVIEW OF SYSTEMS All systems otherwise negative, except as recorded above. PAST HISTORY Negative. SOCIAL HISTORY Never smoker. Heavy alcohol use; consumes five beers a day. No drug use. Is a local resident. FAMILY HISTORY No significant family medical history. ADDITIONAL NOTES The nursing notes have been reviewed with agreement regarding the chief complaint, HPI, ROS, PMH and patient medications and allergies. PHYSICAL EXAM Vital Signs: 10/31/2016 15:20 BP: 127/78. HR: 64. RR: 16. O2 saturation: 99%. Temp: 98.7 F. Have been reviewed as normal and appear to be correct. Appearance: Alert. Oriented X3. No acute distress. Eyes: Pupils equal, round and reactive to light. EOM intact. Skin: Healing wound. No infection. (x11 sutures healing nicely on L FA, wound edges approximated well, x4 sutures trapped under new skin growth, no s/s of infection, no swelling, no erythema, no warmth, no dc). Extremities: Normal inspection. Extremities atraumatic. No lower extremity edema. Neuro, Vascular and Tendons: Sensation intact. No tendon injury. No vascular compromise. Neuro: Oriented X 3. No motor deficit. No sensory deficit. PROGRESS AND PROCEDURES Suture Removal: The wound is located on the left forearm. Examination of wound reveals normal healing, no tenderness and no infection. No tenderness, erythema, increased warmth, crusting or purulent exudate. No wound dehiscense. Distal neurovascular function and tendon function normal. 10 sutures removed by nurse. No other treatment. Course of Care: x1 suture removed by me, to show nurse how to remove sutures, nurse is new grad under the supervision of unstackerSagar Olsen. Patient and family counseled in person regarding the patient's stable condition and diagnosis. Differential Diagnosis: Other possible considerations: wound recheck - normal, infection, dehiscience, suture removal. Above considerations are based on history and physical exam. Differential diagnosis was discussed with patient. Disposition: Discharged home in good and improved condition (15:31). Condition: good and stable. CLINICAL IMPRESSION Suture removal; INSTRUCTIONS Wear splint (as previously directed, for approximately another 2 weeks). Warnings: GENERAL WARNINGS: Return or contact your physician immediately if your condition worsens or changes unexpectedly, if not improving as expected, or if other problems arise. Specifically return if problem worsens. Prescription Medications: Ultram 50 mg tablets: take 1-2 orally every 6 hours as needed for pain. Dispense twenty (20). No refills. Substitution is permissible. Follow-up: Follow up with your doctor in about one week as needed. Call for an appointment. Summary of care provided to patient. Understanding of the discharge instructions verbalized by patient. (Electronically signed by Roxana Pagan A.R.N.P. 10/31/2016 20:37)
--- NOTE | 2016-10-31 15:31 | ED CLINICAL REPORT ---
Clinical Report - Physicians/Mid Levels [facility] [address] [place] [address] 10/31/2016 15:13 Patient: LAZARO PEDRAZA Time Seen: 15:18; initial patient contact, initial documentation, patient care assumed. Arrived- By private vehicle. Historian- patient and son. HISTORY OF PRESENT ILLNESS Treated in emergency department (about 14 days ago). Chief Complaint: SUTURE REMOVAL. The patient has experienced pain since the procedure was performed. Previous emergency department treatment: prescription given for pain med. Patient finished medication (oxycodone). REVIEW OF SYSTEMS All systems otherwise negative, except as recorded above. PAST HISTORY Negative. SOCIAL HISTORY Never smoker. Heavy alcohol use; consumes five beers a day. No drug use. Is a local resident. FAMILY HISTORY No significant family medical history. ADDITIONAL NOTES The nursing notes have been reviewed with agreement regarding the chief complaint, HPI, ROS, PMH and patient medications and allergies. PHYSICAL EXAM Vital Signs: 10/31/2016 15:20 BP: 127/78. HR: 64. RR: 16. O2 saturation: 99%. Temp: 98.7 F. Have been reviewed as normal and appear to be correct. Appearance: Alert. Oriented X3. No acute distress. Eyes: Pupils equal, round and reactive to light. EOM intact. Skin: Healing wound. No infection. (x11 sutures healing nicely on L FA, wound edges approximated well, x4 sutures trapped under new skin growth, no s/s of infection, no swelling, no erythema, no warmth, no dc). Extremities: Normal inspection. Extremities atraumatic. No lower extremity edema. Neuro, Vascular and Tendons: Sensation intact. No tendon injury. No vascular compromise. Neuro: Oriented X 3. No motor deficit. No sensory deficit. PROGRESS AND PROCEDURES Suture Removal: The wound is located on the left forearm. Examination of wound reveals normal healing, no tenderness and no infection. No tenderness, erythema, increased warmth, crusting or purulent exudate. No wound dehiscense. Distal neurovascular function and tendon function normal. 10 sutures removed by nurse. No other treatment. Course of Care: x1 suture removed by me, to show nurse how to remove sutures, nurse is new grad under the supervision of healthcare administration internshipSagar Olsen. Patient and family counseled in person regarding the patient's stable condition and diagnosis. Differential Diagnosis: Other possible considerations: wound recheck - normal, infection, dehiscience, suture removal. Above considerations are based on history and physical exam. Differential diagnosis was discussed with patient. Disposition: Discharged home in good and improved condition (15:31). Condition: good and stable. CLINICAL IMPRESSION Suture removal; INSTRUCTIONS Wear splint (as previously directed, for approximately another 2 weeks). Warnings: GENERAL WARNINGS: Return or contact your physician immediately if your condition worsens or changes unexpectedly, if not improving as expected, or if other problems arise. Specifically return if problem worsens. Prescription Medications: Ultram 50 mg tablets: take 1-2 orally every 6 hours as needed for pain. Dispense twenty (20). No refills. Substitution is permissible. Follow-up: Follow up with your doctor in about one week as needed. Call for an appointment. Summary of care provided to patient. Understanding of the discharge instructions verbalized by patient. (Electronically signed by Roxana Pagan A.R.N.P. 10/31/2016 20:37)
--- NOTE | 2016-10-31 20:38 | ED MAR SUMMARY ---
..... Medication Administration Record Located Within [facility] [address] [place], [place] [id number] Patient: LAZARO PEDRAZA Visit ID: [id number] 46y, M Weight: 90.7 kg Height/Length: 65 in BMI: 33.3 ALLERGIES: None
--- NOTE | 2016-10-31 20:38 | ED MED RECONCILIATION SUMMARY ---
Patient: MURTAZA HIDALGO LAZARO Medication Reconciliation Report [facility] VisitID: [id number] [address] [place] [address] 46y, M Registration Date/Time: 10/31/2016 Weight: 90.7 kg Height/Length: 65 in. BMI: 33.3 ALLERGIES: None The patient's Home Medications are listed below: NONE. The source(s) of the original Home Medication information: Not obtained. The following Medications were given to the patient in the Emergency Department: None. The following Medications were prescribed to the patient: Ultram 50 mg tablets: take 1-2 orally every 6 hours as needed for pain. Dispense twenty (20). No refills. Substitution is permissible. -- Roxana Pagan A.R.N.P.
--- NOTE | 2016-10-31 20:38 | ED MED RECONCILIATION SUMMARY ---
Patient: MURTAZA HIDALGO LAZARO Medication Reconciliation Report [facility] VisitID: [id number] [address] [place] [address] 46y, M Registration Date/Time: 10/31/2016 Weight: 90.7 kg Height/Length: 65 in. BMI: 33.3 ALLERGIES: None The patient's Home Medications are listed below: NONE. The source(s) of the original Home Medication information: Not obtained. The following Medications were given to the patient in the Emergency Department: None. The following Medications were prescribed to the patient: Ultram 50 mg tablets: take 1-2 orally every 6 hours as needed for pain. Dispense twenty (20). No refills. Substitution is permissible. -- Roxana Pagan A.R.N.P.
--- NOTE | 2016-10-31 20:38 | ED MAR SUMMARY ---
..... Medication Administration Record [facility] [address] [place], [place] [id number] Patient: LAZARO PEDRAZA Visit ID: [id number] 46y, M Weight: 90.7 kg Height/Length: 65 in BMI: 33.3 ALLERGIES: None
--- NOTE | 2016-10-31 20:38 | ED DISCHARGE INSTRUCTIONS ---
Patient: LAZARO PEDRAZA General Instructions [facility] VisitID: [id number] [address] [place] [address] 46y, M Registration Date/Time: 10/31/2016 Suture removal; INSTRUCTIONS Wear splint (as previously directed, for approximately another 2 weeks). Warnings: GENERAL WARNINGS: Return or contact your physician immediately if your condition worsens or changes unexpectedly, if not improving as expected, or if other problems arise. Specifically return if problem worsens. Prescription Medications: Ultram 50 mg tablets: take 1-2 orally every 6 hours as needed for pain. Dispense twenty (20). No refills. Substitution is permissible. Follow-up: Follow up with your doctor in about one week as needed. Call for an appointment. Summary of care provided to patient. Understanding of the discharge instructions verbalized by patient. ADDITIONAL INFORMATION Suture Removal(No Complication) You were seen today for a suture removal. Your wound is healing as expected. It is unlikely that you will have any further problem. Home Care: Keep the wound clean and dry. Use a Band-Aid, if needed, to keep the wound from getting dirty for the next week. Wash the wound carefully with soap and water each day during the next week. You may shower and bathe as usual. Swimming is now permitted. Follow Up for any problems with your own doctor. Get Prompt Medical Attention if any of the following occur: Increasing pain in the wound Redness, swelling or pus coming from the wound Fever of 100.4F (38C) or higher, or as directed by your healthcare provider If the wound edges re-open Wound Check, No Infection Your laceration is healing as expected. There is no infection. Home care The following guidelines will help you care for your wound at home: Keep the wound clean and dry. If you were given a bandage, you may change it daily as follows: After removing the bandage, wash the area with soap and water. Use a wet cotton swab to loosen and remove any blood or crust that forms. After cleaning, apply a thin layer of antibiotic ointment. This will keep the wound clean and make it easier to remove the stitches. Reapply a fresh bandage. You may remove the bandage to shower as usual after the first 24 hours, but do not soak the area in water (no swimming) until the sutures are removed. If surgical tape was used, keep the area clean and dry. If it becomes wet, blot it dry with a towel. Follow-up care If sutures or lyssa are in place, it is important to keep your appointment for removal. If they are left in place too long permanent montalvo may remain. If surgical tape closures were applied, you may remove them yourself if they have not fallen of by 10 days after the injury. When to seek medical care Get prompt medical attention if any of the following occur: Increasing pain in the wound Redness, swelling, or pus coming from the wound Fever of 100.4F (38C) or higher, or as directed by your health care provider If sutures or lyssa come apart or fall out before your next appointment If the surgical tape closures fall off within seven days, or the wound edges re-open Splint Care, Fiberglass The following will help you care for your splint: It will take up totwo hours for your fiber glass splint to fully harden; therefore, do notapply any pressure on it during that time or else it may break. To prevent swelling under the splint, for thefirst 48 hours: If the splint is on yourarm, keep it in a sling or raised to shoulder level when sitting or standing; rest it on your chest or on a pillow at your side when lying down. If the splint is on yourfoot, keep it propped up above the level of your waist when sitting or lying. Avoid crutch walking as much as possible during this time. Keep the splint/cast dry at all times. Bathe with your splint/cast well out of the water, protected with a large plastic bag, rubber-banded at the top end. If a fiberglass cast or splint gets wet, you can dry it with a hair-dryer. Follow-up care Follow up with your doctor or this facility as advised. When to seek medical care Get prompt medical attention if any of the following occur: Bad odor from the splint or wound-fluid stains the splint The splint cracks or remains wet over 24 hours Increasing tightness or pressure under the splint Fingers or toes become swollen, cold, blue, numb or tingly Increased pain under the splint Tramadol Hydrochloride Oral tablet What is this medicine? TRAMADOL (TRA ma dole) is a pain reliever. It is used to treat moderate to severe pain in adults. How should I use this medicine? Take this medicine by mouth with a full glass of water. Follow the directions on the prescription label. If the medicine upsets your stomach, take it with food or milk. Do not take more medicine than you are told to take. Talk to your vascular sonographer regarding the use of this medicine in children. Special care may be needed. What side effects may I notice from receiving this medicine? Side effects that you should report to your doctor or health care administrative tech as soon as possible: allergic reactions like skin rash, itching or hives, swelling of the face, lips, or tongue breathing difficulties, wheezing confusion itching light headedness or fainting spells redness, blistering, peeling or loosening of the skin, including inside the mouth seizures Side effects that usually do not require medical attention (report to your doctor or health care administrative tech if they continue or are bothersome): constipation dizziness drowsiness headache nausea, vomiting What may interact with this medicine? Do not take this medicine with any of the following medications: MAOIs like Carbex, Eldepryl, Marplan, Nardil, and Parnate This medicine may also interact with the following medications: alcohol or medicines that contain alcohol antihistamines benzodiazepines bupropion carbamazepine or oxcarbazepine clozapine cyclobenzaprine digoxin furazolidone linezolid medicines for depression, anxiety, or psychotic disturbances medicines for migraine headache like almotriptan, eletriptan, frovatriptan, naratriptan, rizatriptan, sumatriptan, zolmitriptan medicines for pain like pentazocine, buprenorphine, butorphanol, meperidine, nalbuphine, and propoxyphene medicines for sleep muscle relaxants naltrexone phenobarbital phenothiazines like perphenazine, thioridazine, chlorpromazine, mesoridazine, fluphenazine, prochlorperazine, promazine, and trifluoperazine procarbazine warfarin What if I miss a dose? If you miss a dose, take it as soon as you can. If it is almost time for your next dose, take only that dose. Do not take double or extra doses. Where should I keep my medicine? Keep out of the reach of children. Store at room temperature between 15 and 30 degrees C (59 and 86 degrees F). Keep container tightly closed. Throw away any unused medicine after the expiration date. What should I tell my health care provider before I take this medicine? They need to know if you have any of these conditions: brain tumor depression drug abuse or addiction head injury if you frequently drink alcohol containing drinks kidney disease or trouble passing urine liver disease lung disease, asthma, or breathing problems seizures or epilepsy suicidal thoughts, plans, or attempt; a previous suicide attempt by you or a family member an unusual or allergic reaction to tramadol, codeine, other medicines, foods, dyes, or preservatives or trying to get breast-feeding What should I watch for while using this medicine? Tell your doctor or health care administrative tech if your pain does not go away, if it gets worse, or if you have new or a different type of pain. You may develop tolerance to the medicine. Tolerance means that you will need a higher dose of the medicine for pain relief. Tolerance is normal and is expected if you take this medicine for a long time. Do not suddenly stop taking your medicine because you may develop a severe reaction. Your body becomes used to the medicine. This does NOT mean you are addicted. Addiction is a behavior related to getting and using a drug for a non-medical reason. If you have pain, you have a medical reason to take pain medicine. Your doctor will tell you how much medicine to take. If your doctor wants you to stop the medicine, the dose will be slowly lowered over time to avoid any side effects. You may get drowsy or dizzy. Do not drive, use machinery, or do anything that needs mental alertness until you know how this medicine affects you. Do not stand or sit up quickly, especially if you are an older patient. This reduces the risk of dizzy or fainting spells. Alcohol can increase or decrease the effects of this medicine. Avoid alcoholic drinks. You may have constipation. Try to have a bowel movement at least every 2 to 3 days. If you do not have a bowel movement for 3 days, call your doctor or health care administrative tech. Your mouth may get dry. Chewing sugarless gum or sucking hard candy, and drinking plenty of water may help. Contact your doctor if the problem does not go away or is severe. You have been given the following additional information: Suture Removal, No Complication Wound Check, Lac F/U (No Infection) Splint Care, Fiberglass Tramadol Hydrochloride Oral tablet (Electronically signed by Roxana Pagan A.R.N.P. 10/31/2016 20:37)
== END 2016-10-31 15:45 | disposition home or self-care (01) ==
LOC: ED SRH 15:12
DX: S51.812D Laceration without foreign body of left forearm, subsequent encounter (principal); Z48.02 Encounter for removal of sutures